=== PATIENT | female | born 1975 | race Caucasian/White ===

== ENCOUNTER 2016-08-07 16:39 | Emergency (ER) | payer BC ==
[~2016-08-07] VITALS: Wt 65.0 kg
[~2016-08-07 16:39] MED LIST: IBUP-1542 PO
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
[2016-08-07] MEDS ORDERED: ONDANSETRON (ODT) 4 MG TAB ODT STA (17:55)
[2016-08-07] MEDS ORDERED: ACETAMINOPHEN 325 MG TAB PO STA (17:55)
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
[2016-08-07] MEDS ORDERED: ACET325T33 PO (18:33)
[2016-08-07] MEDS ORDERED: ONDA4TAB14 PO (18:33)
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
[2016-08-07] MEDS ORDERED: CYCL-319 PO (18:38)
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
== END 2016-08-07 18:50 | disposition home or self-care (01) ==
LOC: FTE 16:39
DX: S06.0X0A Concussion without loss of consciousness, initial encounter (principal); M48.02 Spinal stenosis, cervical region; S13.4XXA Sprain of ligaments of cervical spine, initial encounter; R11.2 Nausea with vomiting, unspecified; V89.2XXA Person injured in unspecified motor-vehicle accident, traffic, initial encounter
CPT/HCPCS: 70450; 72125; Z7502; Z7610